=== PATIENT | female | born 1965 | race Caucasian/White ===

== ENCOUNTER 2021-07-01 07:03 | Inpatient (IN) ==
--- NOTE | 2021-07-01 07:37 | Emergency Department Note ---
Impression & Plan Spondylolisthesis at L4-L5 level, Encounter for pre-operative examination, Chronic lumbar radiculopathy ED Provider Note CHIEF COMPLAINT: Back pain HISTORY OF PRESENT ILLNESS: Heavenly Mcduffie is a 56 year old female who presents to the Emergency Department for evaluation of worsening pain to her lower back radiating into her left buttocks and leg with associated numbness and tingling which has been worsening over the past several months. The patient states that she has a pinched nerve in her lower back that she has been dealing with since October 2020 which then became worse after she had a hip replacement this past January. The patient has been following with Dr. Lerma of Orthopedic spine and had surgery scheduled for L4-L5 decompression/fusion tomorrow, however this was cancelled due to COVID-19 precautions. The patient denies having sustained any additional falls or trauma to her back, but she states that her pain has become unbearable. Currently, she describes a burning pain and rates her discomfort as a 10/10 which worsens with attempts of movement. She has been taking Tramadol and using STIM with little relief. The patient was in contact with Dr. Lerma's office and was referred to the Emergency Department for admission to the hospital. The patient otherwise denies pain to her neck or mid- lower back. No pain radiating into arms. No saddle paresthesias or loss of co ntinence of her bowels/bladder. No recent fevers/chills, chest pain, palpitations, abdominal pain, vomiting, diarrhea or urinary symptoms. REVIEW OF SYSTEMS: 10 systems were reviewed and were negative unless otherwise stated in HPI as above PHYSICAL EXAM: VITALS: Vitals are noted on the nurse's note and reviewed by myself. Tachycardic, vital signs otherwise stable. General: Resting at the edge of the bed, appears uncomfortable but no acute distress Head/Eyes: Normocephalic, PERRL, EOMI Neck: No mid-line cervical tenderness, ROM intact without pain Resp: Good inspiratory effort on room air CV: Tachycardic rate, regular rhythm, peripheral pulses palpated Back: No midline tenderness to the thoracic spine, tender to palpation over the lumbar spine and left perispinal musculature radiating into the left buttocks, no obvious step-offs or deformities MSK: With attention to the LLE, mild tenderness to palpation of the left thigh, perceives numbness/tingling but sensation intact on exam. ROM intact with strength 5/5 throughout. No tenderness to palpation of the BUE or RLE, ROM intact with strength 5/5 and sensation throughout these extremities as well Neuro: Awake, alert and oriented x 3, interacting and answering questions appropriately Differential diagnosis includes musculoskeletal, disc herniation, radiculopathy, fracture, cord compression, discitis, sciatica, cauda equina, as well as other pathologies were considered. EMERGENCY DEPARTMENT COURSE: Physical exam and history were performed. Nursing triage notes, EMR, and medication list were personally reviewed. Patient appears to have worsening pain to her lower back radiating into her left buttocks and leg with associated numbness and tingling which is worsening over the past several months. The patient is following with Dr. Lerma of orthopedic spine and had surgery scheduled for L4-5 decompression/fusion tomorrow, however this was canceled due to Covid19 precautions. She has been in contact with his office and was told that if her pain/symptoms became worse, she should come to the emergency department for admission to the hospital. Additional history as described above. See exam as above. The patient was offered pain medication but stated that she had just taken a dose of tramadol prior to arrival and declined additional medication at this time. Labs were obtained and reviewed by myself as below. Of note, no leukocytosis with a WBC of 8.5. No concern for anemia with hemoglobin 14.3. Electrolytes WNL. Renal indices stable. LFTs nondiagnostic. Covid19 negative. Maryan Sweet PA-C who works with Dr. Lerma was contacted and they agreed to evaluate the patient for further management. The patient verbalized understanding and agreement with the treatment plan as above. The chart was completed utilizing [employer] Speech Voice Recognition Software. Grammatical errors, random word insertions, pronoun errors, and incomplete sentences are an occasional consequence of this system due to software limitations, ambient noise, and hardware issues. Any formal questions or concerns about the content, text, or information contained within the body of this dictation should be directly addressed to the provider for clarification. Past Med/Surg History Medical History Arthritis History of COVID-19 04/2020>loss of taste/smell>resolution of symptoms Hx of cancer of endometrium Hx of endometriosis Hx of melanoma of skin right low back, 2006 Hyperlipidemia Surgical History H/O total hysterectomy 2019 History of anesthesia reaction DIFFICULTY WAKING UP-can hear, unable to open eyes/speak/PONV History of bilateral tubal ligation History of dilatation and curettage X 2 History of laparoscopy History of removal of skin mole Melanoma, right low back, 2006 History of revision of total hip arthroplasty LEFT History of tooth extraction History of total hip arthroplasty LEFT Family History Father Family history of diabetes mellitus Other No family history of adverse response to anesthesia Social History Smoking Status: Never smoker Second Hand Exposure: Yes (IN THE PAST); Hx Alcohol Use: No Hx Substance Use: No Preferred Language: Slovak Communication Ability: Effective Vascular Sonographer Required: No Beliefs That Will Affect Care: None Current Living Situation: Spouse Feels Safe at Home: Yes Safety Concerns: Feels Safe At This Time Assistive Devices: Cane Allergies Allergies Allergy/AdvReac Type Severity Reaction Status Date / Time No Known Allergies Allergy Verified 06/16/21 09:21 Home Meds Home Medications Medication Instructions Recorded Confirmed atorvastatin 10 mg tablet 10 mg PO HS 06/16/21 07/01/21 tramadol 50 mg tablet 50 mg PO Q6H PRN 06/16/21 07/01/21 Results & Data (ED) Vital Signs Vital Signs - 24 hr 07/01/21 07:07 Temperature 36.0 C L Temperature Source Temporal Artery Scan Pulse Rate 117 H Pulse Rhythm Regular Pulse Strength Normal Respiratory Rate 20 Respiratory Effort / Characteristics Non-Labored Spontaneous Respiratory Depth Normal Respiratory Pattern Regular Blood Pressure 134/85 Blood Pressure Mean 101 Blood Pressure Position Sitting Pulse Oximetry 98 Oxygen Delivery Method Room Air Sepsis Recent Fever Within 48 Hours No Sepsis New/Unexplained Change in Mental Status No Sepsis Action Taken by Nursing No Action Required Laboratory Data Result diagrams: 07/01/21 07:45 07/01/21 07:45 Lab Results 07/01/21 07/01/21 07/01/21 Range/Units 07:45 07:45 07:45 WBC 8.50 (4.8-10.8) K/uL RBC 4.96 (4.2-5.4) M/uL Hgb 14.3 (12.0-16.0) g/dL Hct 43.3 (37-47) % MCV 87.3 (80-100) fL MCH 28.8 (25-34) pg MCHC 33.0 (32-36) g/dL RDW Std Deviation 43.8 (36.4-46.3) fL RDW Coeff of Michelle 13.5 (11.5-14.5) % Plt Count 299 (130-400) K/uL MPV 10.2 (7.4-10.4) fL Immature Gran % (Auto) 0.1 % Neut % (Auto) 69.3 % Lymph % (Auto) 20.6 % [place] % (Auto) 7.2 % Eos % (Auto) 2.2 % Baso % (Auto) 0.6 % Neut # (Auto) 5.89 (1.4-6.5) K/uL Lymph # (Auto) 1.75 (1.2-3.4) K/uL [place] # (Auto) 0.61 H (0.11-0.59) K/uL Eos # (Auto) 0.19 (0-0.5) K/uL Baso # (Auto) 0.05 (0-0.2) K/uL Immature Gran # (Auto) 0.01 (0.00-0.02) K/uL Sodium 137 (136-145) mmol/L Potassium 4.0 (3.5-5.1) mmol/L Chloride 101 (98-107) mmol/L Carbon Dioxide 27 (21-32) mmol/L Anion Gap 9 (3-11) BUN 19 (6-23) mg/dl Creatinine 0.68 (0.6-1.2) mg/dl Est Cr Clr Drug Dosing 75.0 ml/min Est GFR ( Amer) 112.5 ml/min Est GFR (Non-Af Amer) 97.1 ml/min BUN/Creatinine Ratio 27.9 H (10-20) Glucose 119 H (70-99(Fasting)) mg/dl Calcium 9.8 (8.5-10.1) mg/dl Total Bilirubin 0.6 (0.2-1.0) mg/dl AST 21 (13-39) U/L ALT 18 (7-52) U/L Alkaline Phosphatase 115 H (34-104) U/L Total Protein 8.3 (6.0-8.3) gm/dl Albumin 4.6 (3.4-5.0) gm/dl Globulin 3.7 (2.5-4.0) gm/dl Albumin/Globulin Ratio 1.2 (0.9-2) SARS-CoV-2, RNA, NAAT NEGATIVE (NEGATIVE) Administered Medications Lactated Ringer's (Lr) 1,000 mls @ 75 mls/hr IV .[id number] MAYCO Stop: 07/31/21 08:14 Last Admin: 07/01/21 10:34 Dose: 75 mls/hr Documented by: [id number] Oxycodone HCl (Oxycodone Hcl Ir 5 Mg Tab (Immediate Release)) 5 - 10 mg PO Q4H PRN PRN Reason: mod to severe pain Stop: 07/15/21 08:00 Last Admin: 07/01/21 09:46 Dose: 5 mg Documented by: [id number] Discharge Plan Visit Data Chief Complaint: Back Injury/Pain Stated Complaint: BACK PAIN ED Provider: Mark Cortés ED Midlevel Provider: Rochelle Clements Discharge Problem: Spondylolisthesis at L4-L5 level, Encounter for pre-operative examination, Chronic lumbar radiculopathy Patient Disposition: Admitted As Inpatient Discharge Instructions Interventions: ED Discharge Assessment Last Done: 07/01/21 08:51
[2021-07-01 07:57] LABS: Basophils # (auto) 0.05 K/uL (0-0.2); Basophils % (auto) 0.6 %; Eosinophils # (auto) 0.19 K/uL (0-0.5); Eosinophils % (auto) 2.2 %; Hematocrit (blood only) 43.3 % (37-47); Hemoglobin 14.3 g/dL (12.0-16.0); Immature Granulocytes # (auto) 0.01 K/uL (0.00-0.02); Immature Granulocytes % (auto) 0.1 %; Lymphocytes # (auto) 1.75 K/uL (1.2-3.4); Lymphocytes % (auto) 20.6 %; Mean Corpuscular Hemoglobin 28.8 pg (25-34); Mean Corpuscular Volume 87.3 fL (80-100); Mean Platelet Volume 10.2 fL (7.4-10.4); Monocytes # (auto) 0.61 K/uL (0.11-0.59); Monocytes % (auto) 7.2 %; Neutrophils # (auto) 5.89 K/uL (1.4-6.5); Neutrophils % (auto) 69.3 %; Platelet Count 299 K/uL (130-400); RDW Coefficient of Variation 13.5 % (11.5-14.5); RDW Standard Deviation 43.8 fL (36.4-46.3); Red Blood Count 4.96 M/uL (4.2-5.4)
[2021-07-01] MEDS ORDERED: ONDANSETRON INJ 2 MG/ML 2 ML VIAL IV PRN (08:01)
[2021-07-01] MEDS ORDERED: ONDANSETRON 4 MG OD TAB PO PRN (08:01)
[2021-07-01] MEDS ORDERED: HYDROmorphone INJ 0.5 MG/0.5 ML SYR IV PRN (08:01)
[2021-07-01] MEDS ORDERED: ACETAMINOPHEN 500 MG TAB PO PRN (08:01)
[2021-07-01] MEDS ORDERED: LORazepam 0.5 MG/1 ML VIAL IV PRN (08:01)
[2021-07-01] MEDS ORDERED: LORazepam 0.5 MG TAB PO PRN (08:01)
[2021-07-01] MEDS ORDERED: HYDROmorphone INJ 1 MG/ML SYRINGE IV PRN (08:01)
[2021-07-01] MEDS ORDERED: NALOXONE HCL 0.4 MG/1 ML VIAL/CARP IV PRN (08:01)
[2021-07-01] MEDS ORDERED: PROMETHAZINE HCL 12.5 MG in SODIUM CHLORIDE 0.9% 50 ML IV PRN (08:01)
[2021-07-01] MEDS ORDERED: oxyCODONE HCL IR 5 MG TAB (IMMEDIATE RELEASE) PO PRN (08:01)
[2021-07-01] MEDS ORDERED: METOCLOPRAMIDE HCL INJ 5 MG/ML 2 ML VIAL IV PRN (08:01)
[2021-07-01] MEDS ORDERED: traMADol HCL 50 MG TABLET PO PRN (08:01)
[2021-07-01] MEDS ORDERED: ACETAMINOPHEN 1,000 MG/100 ML VIAL IV PRN (08:01)
[2021-07-01 08:22] LABS: Albumin Globulin Ratio 1.2 (0.9-2); Albumin Level 4.6 gm/dl (3.4-5.0); BUN Creatinine Ratio 27.9 (10-20); Bilirubin,Total 0.6 mg/dl (0.2-1.0); Calcium 9.8 mg/dl (8.5-10.1); Est GFR (African American) 112.5 ml/min; Est GFR (Non-African American) 97.1 ml/min; Globulin 3.7 gm/dl (2.5-4.0); Total Protein 8.3 gm/dl (6.0-8.3)
--- NOTE | 2021-07-01 08:33 | History & Physical Report ---
Date of Service July 01, 2021 Assessment & Plan (1) Spondylolisthesis at L4-L5 level: Plan: Patient is being admitted to Dr. Lerma service from the ER. She has trialed and failed conservative therapy. Pain is uncontrolled at home. We have discussed pursuing surgical intervention which would require posterior lumbar decompression and instrumented fusion at L4-5. Risk, benefits, pros cons alternatives were outlined in detail. We will plan for above-mentioned surgical intervention tomorrow. History of Present Illness Chief Complaint: Intractable lower back pain and left lower extremity pain Primary Care Provider: Juan F Zhang Is a pleasant 56-year-old female who underwent a left total hip arthroplasty by Dr. Angel in January 2021. Postoperatively she still noted some pain and paresthesias down her left leg extending into her foot. A work-up was performed for her lumbar spine. She was noted to have a spondylolisthesis at L4-5 with facet cyst on the left causing marked neuroforaminal stenosis. she received [address] Gonzalez in April with modest relief. She has been a mbling with a cane because of her symptoms. She has been using external muscle stimulator with modest relief. She is also been requiring the use of tramadol for pain control. Denies bowel bladder changes. Denies fevers or chills. Pain is quite limiting in the left lower extremity affecting quality of life. She has seen her family physician Dr. Zhang last week for preoperative medical consultation Allergies Allergy/AdvReac Type Severity Reaction Status Date / Time No Known Allergies Allergy Verified 06/16/21 09:21 Home Medications Medication Instructions Recorded Confirmed Type atorvastatin 10 mg tablet 10 mg PO HS 06/16/21 07/01/21 History tramadol 50 mg tablet 50 mg PO Q6H PRN 06/16/21 07/01/21 History Past Med/Surg History Medical History Arthritis History of COVID-19 04/2020>loss of taste/smell>resolution of symptoms Hx of cancer of endometrium Hx of endometriosis Hx of melanoma of skin right low back, 2006 Hyperlipidemia Surgical History H/O total hysterectomy 2019 History of anesthesia reaction DIFFICULTY WAKING UP-can hear, unable to open eyes/speak/PONV History of bilateral tubal ligation History of dilatation and curettage X 2 History of laparoscopy History of removal of skin mole Melanoma, right low back, 2007 History of revision of total hip arthroplasty LEFT History of tooth extraction History of total hip arthroplasty LEFT Family History Father Family history of diabetes mellitus Other No family history of adverse response to anesthesia Social History Smoking Status: Never smoker Second Hand Exposure: Yes (IN THE PAST); Hx Alcohol Use: No Preferred Language: Serbian Contract Implementation Analyst Required: No Beliefs That Will Affect Care: None Current Living Situation: Spouse Feels Safe at Home: Yes Assistive Devices: Cane Review of Systems Review of Systems: All systems reviewed & are unremarkable except as noted in HPI & below Physical Exam Physical Exam: She is seen in the emergency room in conjunction with her Alert and oriented x3 No acute distress Nontender to palpation of midline lumbar spine She has a 4 to a 4+/5 left dorsiflexion, EHL 5/5 bilateral plantar flexion, quadricep, hamstring, hip flexor, hip abductor and hip adductor Positive tension sign on the left, negative contralateral straight leg raise Negative logrolling bilaterally Constitutional: average body habitus Eyes: normal visual steven by confrontation ENMT: external ear and nose normal, oropharynx normal Neck: normal visual inspection Respiratory: normal respiratory effort Cardiovascular: Extremities: normal capillary refill Gastrointestinal (Abdomen): Inspection/Auscultation: abdomen normal to inspection Musculoskeletal: Extremities: extremities normal to inspection and + abnormal strength Skin: normal turgor Neurologic: normal touch/pain/proprioception, moves all extremities and + focal motor deficit Psychiatric: A+Ox3, euthymic affect Eye Contact: good eye contact Speech: normal rate/rhythm/volume of speech Results & Data Results & Data ([facility]) Vital Signs (Past 12 Hours) Vital Signs Temp Pulse Resp BP Pulse Ox 07/01/21 07:07 36.0 C L 117 H 20 134/85 98
[2021-07-01] MEDS: LACTATED RINGER'S 1,000 ML IV SCH ×2 (10:34→23:50)
--- NOTE | 2021-07-01 13:06 | Anesthesiology Consultation ---
Date of Service July 01, 2021 Assessment & Plan (1) Encounter for pre-operative examination: Chart Review Chart Review: Acceptable Risk for Surgery and Patient NOT seen in Pre Admission Testing covid neg 07/01/21 Consults Requested none History Surgery Operation Date: 07/02/21 11:05 Proposed Procedures p L4-L5 Transforaminal Lumbar Interbody Fusion - Julio Lerma DO Height/Weight Height: 4 ft 11 in Weight: 67.261 kg Allergies Allergy/AdvReac Type Severity Reaction Status Date / Time No Known Allergies Allergy Verified 06/16/21 09:21 Medications Home Medications Medication Instructions Recorded Confirmed Last Taken atorvastatin 10 mg tablet 10 mg PO HS 06/16/21 07/01/21 Unknown tramadol 50 mg tablet 50 mg PO Q6H PRN 06/16/21 07/01/21 07/01/21 Active Medications Generic Name Dose Route Start Last Admin Trade Name Freq PRN Reason Stop Dose Admin Lactated Ringer's 1,000 mls @ 75 mls/hr 07/01/21 08:15 07/01/21 10:34 Lr IV 07/31/21 08:14 75 mls/hr .[id number] MAYCO Administration Oxycodone HCl 5 - 10 mg 07/01/21 08:01 07/01/21 09:46 Oxycodone Hcl Ir 5 Mg Tab (Immediate Release) PO 07/15/21 08:00 5 mg Q4H PRN Administration mod to severe pain Past Medical History Medical History Arthritis History of COVID-19 04/2020>loss of taste/smell>resolution of symptoms Hx of cancer of endometrium Hx of endometriosis Hx of melanoma of skin right low back, 2006 Hyperlipidemia Past Family History Family History Father Family history of diabetes mellitus Other No family history of adverse response to anesthesia Past Surgical History Surgical History H/O total hysterectomy 2019 History of anesthesia reaction DIFFICULTY WAKING UP-can hear, unable to open eyes/speak/PONV History of bilateral tubal ligation History of dilatation and curettage X 2 History of laparoscopy History of removal of skin mole Melanoma, right low back, 2006 History of revision of total hip arthroplasty LEFT History of tooth extraction History of total hip arthroplasty LEFT Social History Smoking Status: Never smoker Hx Alcohol Use: No Hx Substance Use: No substance use type: does not use Physical Exam Vital Signs Last Vital Signs Temp 36.6 C 07/01/21 10:09 Pulse 83 07/01/21 10:09 Resp 18 07/01/21 10:09 BP 141/67 H 07/01/21 10:09 Pulse Ox 100 07/01/21 10:09 Testing Laboratory Results 07/01/21 07:45 07/01/21 07:45 Electrocardiogram Date: 06/18/21 DICTATED BY:Cory Vick MD Test Reason : Blood Pressure : / mmHG Vent. Rate : 089 BPM Atrial Rate : 089 BPM P-R Int : 150 ms QRS Dur : 076 ms QT Int : 356 ms P-R-T Axes : 085 085 070 degrees QTc Int : 433 ms Normal sinus rhythm Normal ECG When compared with ECG of 12-JAN-2021 14:26, No significant change was found Confirmed by Cory Vick ([id number]) on 06/18/2021 2:08:06 PM
[2021-07-01] MEDS: ATORVASTATIN 10 MG TAB PO SCH (21:01)
[2021-07-02] MEDS ORDERED: ceFAZolin 2000MG 2,000 MG/15 ML SYR IV SCH (06:00)
[2021-07-02] MEDS: LACTATED RINGER'S 1,000 ML IV SCH ×2 (12:00→18:00)
--- NOTE | 2021-07-02 12:33 | History & Physical Bridge Note ---
Date of Service July 02, 2021 History & Physical Bridge Note I have examined the patient, reviewed the History & Physical and in the interval since the performance of the History & Physical I have noted the following changes of clinical significance: no changes noted L4-5 decompression fusion
[2021-07-02] MEDS ORDERED: SCOPOLAMINE 1 MG TDSY TD ONE ×2 (12:54→13:00)
[2021-07-02] MEDS ORDERED: ceFAZolin 330 MG/ML 1 GM VIAL ONE (12:58)
[2021-07-02] MEDS ORDERED: BUPIVACAINE 0.5 % 5 MG/1 ML MPF 30ML VIAL ONE (12:58)
[2021-07-02] MEDS ORDERED: EpINEphrine HCL INJ 1 MG/ML 1ML SYRINGE IR ONE (14:04)
[2021-07-02] MEDS ORDERED: FLOSEAL HEMOSTATIC MATRIX 10ML TOP ONE (14:04)
--- NOTE | 2021-07-02 14:47 | Operative Report ---
Post Operative Report Pre & Post Diagnosis Operation Date: 07/02/21 11:05 Pre-Op Diagnosis: Spondylolisthesis at L4-L5 level Post-Op Diagnosis: Spondylolisthesis at L4-L5 level I identified the patient and participated in the time-out.: Yes Procedure Operation Date: 07/02/21 11:05 Actual Procedures 1 lumbar decompression with bilateral medial facetectomies and foraminotomies L3-L4 L4-5. #2 posterior spinal fusion L4-L5. #3 posterior instrumentation L4- 5. #4 interbody fusion L4-L5. #5 placement of titanium cage 13 x 22 mm at L4- L5. #6 placement locally harvested morselized autograft in the posterior gutters per #7 placement of the I factor combined with V toss in the interbody space and posterior lateral gutters. Surgeon Julio Lerma, Beta Tester John Lopez Estimated Blood Loss 50 Findings Consistent with Post-Op Diagnosis Specimens None Indications This is a 56-year-old female who presents above-mentioned diagnosis of failed extensive course of nonoperative care she is here for surgical invention. Description of Procedure Patient was met with identified informed consent obtained. Patient was then taken to the operative suite underwent a patient placed in a prone position the [place] table top Marcello frame. All bony prominences well-padded eyes inspected to ensure no external pressure placed upon them. This point the lumbar spine was prepped and draped in normal sterile fashion. Sharp dissection with the assistance of Bovie cautery was performed down to and exposing the lamina and transverse processes of L4 and L5. From a caudal to cephalad fashion complete laminectomy of L4 partial laminectomy of L3 was performed including bilateral me dial facetectomies and foraminotomies addressing severe spinal stenosis. Pedicle screws were then placed in L4 and L5 bilaterally with assistance of fluoroscopy and the properly sized dalia placed. By way of a transfemoral approach and left complete discectomy of L4-L5 was performed endplates curetted to subcortical bleeding bone and a 13 x 22 mm titanium cage filled I factor tapped in position. Rods were then compressed locked in final position bilaterally. The transverse processes of L4 and L5 burred to subcortically bone. I factor combined with toss and locally harvested morselized autograft was placed in the posterior gutters. 15 round BEN drain inserted. The incision was then closed with 1 Vicryl the fascia 2-0 Vicryl subcutaneously and 4 Monocryl for final skin closure. Steri-Strip sterile dressings placed. Patient waken taken PACU stable condition. Please note spinal cord monitoring was utilized at the procedure no changes noted. Lastly John Lopez was present at the entire surgery while the patient positioning proximal complex portions of the surgery and fascial closure. I attest to the content of the Intraoperative Record and any orders documented therein. Any exceptions are noted below.
[2021-07-02] MEDS ORDERED: ATROPINE SULFATE 0.1 MG/ML 10ML SYR IV PRN (14:53)
[2021-07-02] MEDS ORDERED: HYDROmorphone INJ 1 MG/ML SYRINGE IV PRN ×2 (14:53→16:09)
[2021-07-02] MEDS ORDERED: ePHEDrine sulfate 50 MG/ML AMP IV PRN (14:53)
[2021-07-02] MEDS ORDERED: ONDANSETRON INJ 2 MG/ML 2 ML VIAL IV PRN ×2 (14:53→16:09)
[2021-07-02] MEDS: fentaNYL citrate 100 MCG/2 ML VIAL IV PRN ×3 (15:18→15:29)
--- NOTE | 2021-07-02 15:42 | Anesthesiology Progress Note ---
Date of Service July 02, 2021 Anesthesia Post Procedure Vital Signs Vital Signs: Temp Pulse Pulse Pulse Resp BP BP 07/02/21 15:35 93 H 19 154/68 H 07/02/21 15:25 94 H 18 147/81 H 07/02/21 15:15 90 20 160/69 H 07/02/21 15:06 36.2 C L 91 H 16 161/83 H 07/02/21 12:02 36.5 C 95 H 18 163/74 H 07/02/21 07:39 36.6 C 84 16 124/77 07/01/21 22:03 36.8 C 88 16 111/69 Pulse Ox 07/02/21 15:35 94 07/02/21 15:25 99 07/02/21 15:15 100 07/02/21 15:06 99 07/02/21 12:02 99 07/02/21 07:39 97 07/01/21 22:03 96 Pain Intensity Back: Pain Intensity: 4 Left Buttock: Pain Intensity: 5 Transfer of Care Handoff Completed per policy Notes Mental Status: alert / awake / arousable and participated in evaluation Patient Amnestic to Procedure: Yes Nausea / Vomiting: adequately controlled Pain: adequately controlled Airway Patency, RR, SpO2: stable & adequate BP & HR: stable & adequate Hydration State: stable & adequate Anesthetic Complications: no major complications apparent and Pt Satisfied with anesthetic care
[2021-07-02] MEDS ORDERED: CHECK SCOPOLAMINE PATCH PLACEMENT SCH (16:00)
[2021-07-02] MEDS ORDERED: HYDROmorphone INJ 0.5 MG/0.5 ML SYR IV PRN (16:09)
[2021-07-02] MEDS ORDERED: traMADol HCL 50 MG TABLET PO PRN (16:09)
[2021-07-02] MEDS ORDERED: LORazepam 0.5 MG TAB PO PRN (16:09)
[2021-07-02] MEDS ORDERED: NALOXONE HCL 0.4 MG/1 ML VIAL/CARP IV PRN (16:09)
[2021-07-02] MEDS ORDERED: ACETAMINOPHEN 500 MG TAB PO PRN (16:09)
[2021-07-02] MEDS ORDERED: DO NOT ADMINISTER PNEUMOCOCCAL VACCINE PRN (16:09)
[2021-07-02] MEDS ORDERED: SOD PHOSPHATE/SOD BIPHOSPHATE ENEMA 132 ML BTL PR PRN (16:09)
[2021-07-02] MEDS ORDERED: ONDANSETRON 4 MG OD TAB PO PRN (16:09)
[2021-07-02] MEDS ORDERED: MAGNESIUM HYDROXIDE SUSP 30 ML UDC PO PRN (16:09)
[2021-07-02] MEDS ORDERED: LORazepam 0.5 MG/1 ML VIAL IV PRN (16:09)
[2021-07-02] MEDS ORDERED: METOCLOPRAMIDE HCL INJ 5 MG/ML 2 ML VIAL IV PRN (16:09)
[2021-07-02] MEDS ORDERED: hydrOXYzine HCl 25 MG TAB PO PRN (16:09)
[2021-07-02] MEDS ORDERED: FAMOTIDINE 20 MG TAB PO PRN (16:09)
[2021-07-02] MEDS ORDERED: bisacodyL 10 MG SUPP PR PRN (16:09)
[2021-07-02] MEDS ORDERED: diphenhydrAMINE Capsule 25 MG CAP PO PRN (16:09)
[2021-07-02] MEDS ORDERED: DO NOT ADMINISTER FLU VACCINE PRN (16:09)
[2021-07-02] MEDS ORDERED: ACETAMINOPHEN 1,000 MG/100 ML VIAL IV PRN (16:09)
[2021-07-02] MEDS ORDERED: PROMETHAZINE HCL 12.5 MG in SODIUM CHLORIDE 0.9% 50 ML IV PRN (16:09)
[2021-07-02] MEDS ORDERED: ALUMINUM/MAGNESIUM SUSP 30 ML UDC PO PRN (16:09)
[2021-07-02] MEDS: KETOROLAC TROMETHAMINE 15 MG/ML VIAL IV SCH (18:00)
[2021-07-02] MEDS: DOCUSATE SODIUM/SENNA 50/8.6MG TAB PO SCH (20:18)
[2021-07-02] MEDS: ATORVASTATIN 10 MG TAB PO SCH (20:18)
[2021-07-02] MEDS: ceFAZolin 1000MG 1,000 MG/7.5 ML SYR IV SCH (20:19)
[2021-07-03] MEDS: ceFAZolin 1000MG 1,000 MG/7.5 ML SYR IV SCH (04:56)
[2021-07-03] MEDS: LACTATED RINGER'S 1,000 ML IV SCH (04:58)
[2021-07-03] MEDS: KETOROLAC TROMETHAMINE 15 MG/ML VIAL IV SCH ×3 (05:49→12:37)
[2021-07-03] MEDS: POLYETHYLENE (MIRALAX) 17 GM PACK PO SCH ×3 (05:49→17:51)
[2021-07-03] MEDS: dexAMETHasone 6 MG in SYRINGE 0 ML IV SCH (10:00)
--- NOTE | 2021-07-03 10:27 | Orthopedic Progress Note ---
Date of Service July 03, 2021 Assessment & Plan (1) Spondylolisthesis at L4-L5 level: Plan: This time continue physical therapy monitor BEN output anticipate discharge home Monday. Admission and Anticipated Discharge Date Admission Date: July 02, 2021 Subjective Back pain controlled leg pain markedly improved Physical Exam Physical Exam: Patient is in the chair at bedside. Is good strength testing. Results & Data ([facility]) Vital Signs (Past 12 Hours) Vital Signs Temp Pulse Pulse Resp BP BP Pulse Ox 07/03/21 07:17 36.8 C 87 18 124/74 96 07/03/21 03:04 36.6 C 77 16 120/68 95 07/02/21 22:31 36.6 C 89 16 123/72 92
[2021-07-03 10:45] LABS: Hematocrit (blood only) 36.3 % (37-47); Hemoglobin 11.9 g/dL (12.0-16.0); Immature Granulocytes # (auto) 0.03 K/uL (0.00-0.02); Immature Granulocytes % (auto) 0.2 %; Lymphocytes # (auto) 0.99 K/uL (1.2-3.4); Mean Corpuscular Hemoglobin 28.5 pg (25-34); Mean Corpuscular Hgb Conc 32.8 g/dL (32-36); Mean Corpuscular Volume 87.1 fL (80-100); Monocytes # (auto) 1.39 K/uL (0.11-0.59); Neutrophils # (auto) 17.32 K/uL (1.4-6.5); Neutrophils % (auto) 87.8 %; Platelet Count 301 K/uL (130-400); RDW Coefficient of Variation 13.7 % (11.5-14.5); RDW Standard Deviation 43.7 fL (36.4-46.3); Red Blood Count 4.17 M/uL (4.2-5.4); White Blood Count 19.73 K/uL (4.8-10.8)
[2021-07-03 11:13] LABS: BUN Creatinine Ratio 22.4 (10-20); Calcium 9.1 mg/dl (8.5-10.1); Creatinine Clr Calc Pharmacy 89.2 ml/min; Est GFR (African American) 118.6 ml/min; Est GFR (Non-African American) 102.3 ml/min; Potassium 3.9 mmol/L (3.5-5.1)
[2021-07-03] MEDS: oxyCODONE HCL IR 5 MG TAB (IMMEDIATE RELEASE) PO PRN ×2 (14:54→20:56)
[2021-07-03] MEDS: DOCUSATE SODIUM/SENNA 50/8.6MG TAB PO SCH (20:56)
[2021-07-03] MEDS: ATORVASTATIN 10 MG TAB PO SCH (20:56)
[2021-07-04] MEDS: POLYETHYLENE (MIRALAX) 17 GM PACK PO SCH ×5 (00:01→23:49)
[2021-07-04] MEDS: oxyCODONE HCL IR 5 MG TAB (IMMEDIATE RELEASE) PO PRN ×3 (02:22→18:26)
--- NOTE | 2021-07-04 09:16 | Orthopedic Progress Note ---
Date of Service July 04, 2021 Assessment & Plan (1) Spondylolisthesis at L4-L5 level: Plan: Patient will continue with physical therapy today. DVT prophylaxis is in the form teds and SCDs. Continue with pain control. Maintain BEN drain. Anticipate discharge home tomorrow Admission and Anticipated Discharge Date Admission Date: July 02, 2021 Subjective Patient is postoperative day 2 lumbar decompression and instrumented fusion. Yesterday she noted some left groin and anterior thigh pain. Does not notice it this morning. BEN drain output last shift was 30 cc. Yesterday in physical therapy ambling roughly 280 feet. Otherwise doing well. Anticipate discharge home tomorrow Review of Systems Review of Systems: All systems reviewed & are unremarkable except as noted in HPI & below Physical Exam Physical Exam: Patient's sitting in chair eating breakfast alert and oriented x3 No acute distress Lumbar dressing is clean dry and intact with functioning BEN drain lower extremities neurovascular intact calves soft and nontender bilaterally Results & Data ([facility]) Vital Signs (Past 12 Hours) Vital Signs Temp Pulse Resp BP Pulse Ox 07/04/21 07:55 36.7 C 78 16 153/79 H 93 07/03/21 22:30 36.7 C 72 16 120/68 97
[2021-07-04] MEDS: dexAMETHasone 6 MG in SYRINGE 0 ML IV SCH (09:51)
[2021-07-04] MEDS: ATORVASTATIN 10 MG TAB PO SCH (21:01)
[2021-07-04] MEDS: DOCUSATE SODIUM/SENNA 50/8.6MG TAB PO SCH (21:01)
[2021-07-05] MEDS: POLYETHYLENE (MIRALAX) 17 GM PACK PO SCH (05:51)
[2021-07-05] MEDS: oxyCODONE HCL IR 5 MG TAB (IMMEDIATE RELEASE) PO PRN ×2 (05:54→14:35)
[2021-07-05] MEDS: dexAMETHasone 6 MG in SYRINGE 0 ML IV SCH (08:34)
--- NOTE | 2021-07-05 12:39 | Discharge Summary ---
Date of Service July 05, 2021 Admission HPI Per Admitting Provider Is a pleasant 56-year-old female who underwent a left total hip arthroplasty by Dr. Angel in January 2021. Postoperatively she still noted some pain and paresthesias down her left leg extending into her foot. A work-up was performed for her lumbar spine. She was noted to have a spondylolisthesis at L4-5 with facet cyst on the left causing marked neuroforaminal stenosis. she received [address] Gonzalez in April with modest relief. She has been ambling with a cane because of her symptoms. She has been using external muscle stimulator with modest relief. She is also been requiring the use of tramadol for pain control. Denies bowel bladder changes. Denies fevers or chills. Pain is quite limiting in the left lower extremity affecting quality of life. She has seen her family physician Dr. Zhang last week for preoperative medical consultation Principal Diagnosis Lumbar spinal stenosis with neurogenic claudication Discharge Data Allergies Allergy/AdvReac Type Severity Reaction Status Date / Time No Known Allergies Allergy Verified 06/16/21 09:21 Consultations 07/01/21 07:59 ED Decision to Admit Stat Procedures Performed Operation Date: 07/02/21 11:05 Actual Procedures p L4-L5 Transforaminal Lumbar Interbody Fusion(Not Applicable) - Julio Lerma DO Hospital Course (1) Spondylolisthesis at L4-L5 level: Patient was admitted with severe back and leg pain underwent surgery [facility] second orthopedic floor postoperative. Postop day #1 she was up and ambulating progressive postop day #2 on postop day #3 BEN drain decreased appropriate. Pain well controlled. Excellent strength testing. Subsequent dis charge home. Discharge orders instructions from the chart for further review. Total Time Total Time Spent Total Time Spent (In Minutes): 20 minutes Discharge Plan Discharge Items Patient Disposition: Home - Self-Care Reason For Visit: intractable back pain Discharge Diagnosis: Lumbar spinal stenosis with spondylolisthesis and radiculopathy Activity: As commented below Non-emergency contact: Primary Care Provider Call non-emergency contact if: you have any medication questions Follow-up/Referrals: Juan F Zhang M.D. [Primary Care Provider] - Diet: Regular Addtl Attending Provider Instructions: ACTIVITY RECOMMENDATIONS: SELF CARE INSTRUCTIONS AFTER THORACIC/LUMBAR FUSIONS 1. You may walk to your tolerance. It is good exercise for your legs and back. Expect some back and intermittent leg aches and pains. 2. You may perform "counter-top" level activities (make a sandwich, keisha with a project, etc.). 3. No bending or lifting of more than 10 pounds or back twisting of any nature (roll like a log when turning in bed). 4. You may ride in a car for 20-30 minutes at a time. No driving until after your first visit with your doctor. 5. Frequent changes of position and restricting sitting to 30 minutes at a time will help limit the amount of back spasms and stiffness you may experience. 6. You may discontinue the use of ambulatory aids (cane, crutches, etc.) once your strength and confidence allow. 7. You may liner installer the shower and let water strike your incision when you arrive home at least once daily. Do not take a tub bath, sit in a hot tub or go into a swimming pool until after your first recheck in the office. SPECIAL CARE INSTRUCTIONS: VERY IMPORTANT TO READ AND REVIEW A. Your surgical incision has been closed with a cosmetic suture under the skin that will dissolve in about 6 weeks. In 14 days, you can use a pair of clean scissors and cut the suture that is left outside of the skin at the ends of your incision. 1. The small skin tapes can be removed 7 days after surgery if they have not fallen off by that point. 2. You may keep the wound open to air as much as possible to promote healing after post-op day number 5 unless told otherwise by your doctor. 3. If you think the wound looks like it is becoming infected (redness or worsening drainage) and/or you are experiencing fever, chill or worsening back pain and muscle spasms, contact the office so that we may evaluate you as soon as possible. B. Complications are uncommon, but please contact us if you have any signs or symptoms of: 1. wound infection (fever higher than 102.5 degrees F, redness, separation of wound, drainage, or increasing pain from the incision) 2. blood clots in legs (pain, swelling, redness and warmth in legs) 3. urinary tract infection (fever higher than 102.5 degrees F, burning upon urination or increased frequency of urination) 4. nerve problems (inability to walk on your toes or heels, numbness, loss of bowel or bladder control) 5. any other symptoms that concern you C. Please call the office at if you have any concerns or questions about your operation or recovery. D. No smoking! Smoking drastically decreases the chance of a solid fusion. E. Do not take any anti-inflammatory medications (Indocin, Advil, Motrin, Aspirin, Naprosyn, etc.) as these may inhibit the chance of a solid fusion. Tylenol is okay to take for pain. MANAGING PAIN AFTER SPINAL SURGERY 1. Narcotic medication is intended for short-term use and will be provided for surgical pain. Surgical pain usually lasts for a period of 4-6 weeks. Narcotic medication includes Percocet, Vicodin, Darvocet, Tylenol #3 or Lortab. 2. Longer-term pain is more appropriately treated with non-narcotic medication such as Tylenol ES. 3. Muscle spasm is not appropriately treated with narcotics. Muscle relaxers such as Soma, Flexeril or Skelaxin can be used along with Tylenol ES. 4. Remember that we all live with some "aches and pains". This is not unusual or uncommon after an injury or as we get older. a. Back pain is expected and may include muscle spasms for 4 to 6 weeks after surgery. The pain should gradually improve. If the pain worsens for no apparent reason, please contact the office. b. Intermittent leg pain may also be experienced and should not be concerned about unless it worsens for no apparent reason. If so, please contact the office. 5. We will provide appropriate medication within the normal guidelines of their prescribed use. We will also be very cautious and aware of potential abuse and extended duration of patients' medication needs. a. Pain medications are for your comfort and to assist with sleep and rest so that the tissue can heal. They are not provided in order to return to normal activity and should not be used through the day. To do so or worsening pain at night can result from ongoing tissue damage and development of tolerance to the prescribed medicine. 6. Please allow 2-3 days to process refills. Prescriptions will not be mailed but must be picked up at the office. FOLLOW UP VISIT: Keep your scheduled follow-up appointment. Any questions, please call the office at . Pending Studies at Discharge: No Stand-Alone Forms: My [facility], Smoking Cessation Medications and DC Order Prescriptions: New tramadol 50 mg tablet 50 mg PO Q6H PRN (Reason: pain, moderate) Qty: 30 RF: 0 oxycodone 5 mg tablet 5 mg PO Q6H PRN (Reason: pain, severe) Qty: 30 RF: 0 Continued atorvastatin 10 mg Tablet 10 mg PO HS RF: 0 tramadol 50 mg Tablet 50 mg PO Q6H PRN (Reason: Pain) RF: 0 Discharge Orders: Discharge Order (Routine); Ordered 07/05/21 Ordered By: Julio Lerma Admission Data Admit Date/Time: 07/02/21 14:49 Attending Provider: Julio Lerma Admit Provider: Julio Lerma Primary Care Provider: Juan F Zhang Other Providers: Julio Lerma
== END 2021-07-05 15:43 | disposition home or self-care (01) | DRG 455 ==
LOC: ED 07:03 → EDINP 07:03 → 3N 08:51